=== PATIENT | female | born 1955 | race Caucasian/White ===

== ENCOUNTER → 2018-10-09 | Outpatient (CLI) | payer OTHER, MEDICAID ==
[~2018-10-09] MED LIST: DEXAMETHASONE 10 MG/ML VIAL ONE; LIDOCAINE 2% 2 ML INJ ONE; MIDAZOLAM 2 MG/2 ML VIAL IVP ONE; MIDAZOLAM 2 MG/2 ML VIAL ONE; ONDANSETRON 4 MG/2 ML VIAL ONE; PHENYLEPHRINE 10 MG/ML SDV ONE; PROPOFOL 200 MG/20 ML VIAL ONE; RANITIDINE 50 MG/2 ML VIAL ONE; fentaNYL 100 MCG/2 ML INJ ONE
--- NOTE | 2018-10-09 14:23 | PDANEPAE ---
ANE History of Present Illness MRI of lumbar spine. ANE Past Medical History - Cardiovascular History Hx Hypertension: No Hx Arrhythmias: No Hx Chest Pain: No Hx Coronary Artery / Peripheral Vascular Disease: No Hx CHF / Valvular Disease: No Hx Palpitations: No - Pulmonary History Hx COPD: No Hx Asthma/Reactive Airway Disease: Yes Hx Recent Upper Respiratory Infection: No Hx Oxygen in Use at Home: Yes O2 in Use at Home (L/minute): 2L Hx Sleep Apnea: No Pulmonary History Comment: Asthma; O2 at night; - Neurologic History Hx Cerebrovascular Accident: No Hx Seizures: No Hx Dementia: No - Endocrine History Hx Diabetes: No Hypothyroid: No Hyperthyroid: No Obesity: moderate - Renal History Hx Renal Disorders: No Renal History Comment: UTI; - Liver History Hx Hepatic Disorders: No Hepatic History Comment: CHOLECYSTECTOMY; - Neurological & Psychiatric Hx Hx Neurological and Psychiatric Disorders: No - Cancer History Hx Cancer: No - Congenital Disorder History Hx Congenital Disorders: No Congenital History Comment: small, crooked thumbs, one niece with goldenhar syndrome - GI History GERD: no Hx Gastrointestinal Disorders: Yes Gastrointestinal History Comment: Gastric bypass in 1993, lost about 100 lbs initially; GERD in past. - Other Health History Other Health History: RHEUMATOID ARTHRITIS. OSTEOPOROSIS. OSTEOARTHRITIS - Chronic Pain History Chronic Pain: Yes (RHEUMATOID & OSTEOARTHRITIS) - Surgical History Prior Surgeries: KNEES REP HANNA. R SHOULDER REPLACEMENT. ANKLES HANNA X2R X1L. GASTRIC BYPASS. CARPAL TUNNEL HANNA. CHOLECYSTECTOMY. Total HYSTERECTOMY ANE Review of Systems Review of Systems: - Exercise capacity METS (RN): 3 METS ANE Patient History - Allergies Allergies/Adverse Reactions: latex Allergy (Verified 10/06/18 15:44) Flushing - Home Medications Home Medications: ACTEMRA SQ 10/06/18 [Last Taken Unknown] ALENDRONATE SODIUM 70 mg PO 10/06/18 [Last Taken Unknown] Albuterol IH PRN PRN 10/06/18 [Last Taken Unknown] Bupropion HCl ER 150 mg PO BID 10/06/18 [Last Taken Unknown] Cyclobenzaprine 20 mg PO HS 10/06/18 [Last Taken Unknown] ETODOLAC 400 mg PO BID 10/06/18 [Last Taken Unknown] Estradiol 2 mg PO DAILY 10/06/18 [Last Taken Unknown] FOLIC ACID 1,600 mcg PO BID 10/06/18 [Last Taken Unknown] Methotrexate 25 mg PO 10/06/18 [Last Taken Unknown] Oxycodone-Acetaminophen 5-325 2 tab PO TID 10/06/18 [Last Taken Unknown] Oxycontin 20 mg PO TID 10/06/18 [Last Taken Unknown] Oxygen IH HS 10/06/18 [Last Taken Unknown] Prednisolone 10 mg PO DAILY 10/06/18 [Last Taken Unknown] Proair Hfa 2 puffs IH PRN PRN 10/06/18 [Last Taken Unknown] Theophylline ER 12Hr 300 mg PO BID 10/06/18 [Last Taken Unknown] Valtrex 1 tab PO DAILY 10/06/18 [Last Taken Unknown] Vitamin C 500 mg (*) 1,000 mg PO DAILY 10/06/18 [Last Taken Unknown] Vitamin D3 4,000 iunits PO DAILY 10/06/18 [Last Taken Unknown] traZODone HCL 200 mg PO HS 10/06/18 [Last Taken Unknown] - NPO status NPO Since - Liquids (Date): 10/09/18 NPO Since - Liquids (Time): 06:45 - Anes Hx Anes Hx: no prior problems - Smoking Hx Smoking Status: Never smoked Marijuana use: No - Alcohol Use Alcohol Use: None - Family Anes Hx Family Anes Hx: none Family Hx Anesthesia Complications: NEG ANE Labs/Vital Signs - Vital Signs Blood Pressure: 135/107 Heart Rate: 97 O2 Sat (%): 96 Height: 162.56 cm Weight: 97.522 kg ANE Physical Exam - Airway Neck exam: FROM Mallampati Score: Class 2 Mouth exam: normal dental/mouth exam (dental implants) - Pulmonary Pulmonary: clear to auscultation - Cardiovascular Cardiovascular: regular rate and rhythym - ASA Status ASA Status: III ANE Anesthesia Plan Anesthesia Plan: GA w LMA
[2018-10-09 17:05] VITALS: BP 133/77
--- NOTE | 2018-10-10 07:13 | CPEKG ---
Test Reason : OPEN Blood Pressure : / mmHG Vent. Rate : 092 BPM Atrial Rate : 092 BPM P-R Int : 155 ms QRS Dur : 086 ms QT Int : 398 ms P-R-T Axes : 080 051 060 degrees QTc Int : 493 ms Sinus rhythm Borderline prolonged QT interval Confirmed by Alonso Dean ([id number]) on 10/10/2018 7:13:16 AM Referred By: Brock Thomson Confirmed By:Alonso Dean
--- NOTE | 2018-10-10 10:32 | POSTANESTH ---
Post Anesthetic Evaluation Cardiovascular Status: Similar to Pre-Op Cond Respiratory Status: Similar to Pre-op Cond. Level of Consciousness/Mental Status: Can Participate in Eval Pain Control: Adequate, Prn Tx Ordered Nausea/Vomiting Control: Adequate, Prn Tx Ordered Complications Possibly Related to Anesthesia: None Noted
== END ==
LOC: FIMAGING 13:52
PROVIDERS: ATTEND Internal Medicine Rheumatology
DX: M47.896 Other spondylosis, lumbar region (principal); F40.240 Claustrophobia; M51.36 Other intervertebral disc degeneration, lumbar region
CPT/HCPCS: 72148; 93005; J1100; J2250; J2370; J2405; J2704; J2780; J3010